=== PATIENT | male | born 1985 | race American Indian/Alaskan Native ===

== ENCOUNTER 2017-11-28 00:39 | Emergency (ER) | payer OTHER ==
[2017-11-28 01:00] VITALS: BP 116/74
[2017-11-28] MEDS ORDERED: MOTRIN PO ONE (01:03)
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
== END 2017-11-28 07:00 | disposition home or self-care (01) ==
LOC: ED 00:39
DX: S16.1XXA Strain of muscle, fascia and tendon at neck level, initial encounter (principal); M62.830 Muscle spasm of back; J45.909 Unspecified asthma, uncomplicated; F17.200 Nicotine dependence, unspecified, uncomplicated; V49.59XA Passenger injured in collision with other motor vehicles in traffic accident, initial encounter; Y93.89 Activity, other specified; Y92.89 Other specified places as the place of occurrence of the external cause; Y99.8 Other external cause status
CPT/HCPCS: 72125; 99284